=== PATIENT | female | born 1945 | race Caucasian/White ===

== ENCOUNTER 2025-09-18 20:01 | Emergency (ER) | payer MEDICARE, OTHER ==
[~2025-09-18] VITALS: Ht 172.7 cm; Wt 77.0 kg
[~2025-09-18 20:01] MED LIST: HYDR12.54 PO; LEVO75TA7 PO; LOSA50TA41 PO; METF-907 PO; SERT25TA74 PO; SIMV-43 PO
[2025-09-18 20:06] VITALS: TEMP 98.9; O2SAT 100
[2025-09-18 21:16] LABS: HEMATOCRIT. 36.1 % (36.0-48.0); HEMOGLOBIN. 11.8 g/dL (12.0-16.0); MEAN PLATELET VOLUME 9.3 fl (7.4-10.4); PLATELET 184 x1000/uL (130-400); RED BLOOD CELL COUNT 4.45 mill/uL (4.2-5.4); RED CELL DISTRIBUTION WIDTH 13.7 % (11.6-14.6)
[2025-09-18 21:24] LABS: UREA NITROGEN BLOOD 26 mg/dL (9-23)
[2025-09-18 21:25] LABS: ASPARTATE AMINOTRANSFERASE 43 IU/L (<34); TROPONIN I HIGH SENSITIVITY 6 ng/L (3.0-34)
[2025-09-18 21:26] LABS: BILIRUBIN DIRECT < 0.1 mg/dL (<=3.0); BILIRUBIN TOTAL 0.2 mg/dL (0.1-1.0); PROTEIN TOTAL 7.5 g/dL (6.0-8.3)
[2025-09-18] MEDS: SODIUM CHLORIDE 0.9% 1,000 ML IV ONE (21:36)
[2025-09-18 21:37] LABS: CREATININE 1.4 mg/dL (0.6-1.0)
[2025-09-18 23:47] LABS: TROPONIN I HIGH SENSITIVITY 8 ng/L (3.0-34)
[2025-09-19 00:02] LABS: ATYPICAL LYMPHOCYTES 2; LYMPHOCYTES % MANUAL 14.0 % (20.0-60.0); MONOCYTES % MANUAL 3.0 % (2.0-8.0); NEUTROPHILS % MANUAL 81.0 % (45.0-75.0); PLATELET ESTIMATE NORMAL
[2025-09-19] MEDS ORDERED: PROPOFOL 200MG/20ML VIAL IV ONE (00:30)
[2025-09-19 02:02] LABS: CLARITY URINE CLOUDY (CLEAR); COLOR URINE YELLOW (YELLOW); GLUCOSE URINE NEGATIVE (NEGATIVE); KETONES URINE NEGATIVE (NEGATIVE); LEUKOCYTE ESTERASE URINE 2+ (NEGATIVE); NITRITE URINE NEGATIVE (NEGATIVE); OCCULT BLOOD URINE NEGATIVE (NEGATIVE); PH URINE 6.0 (4.5-8.0); PROTEIN URINE TRACE (NEGATIVE); SPECIFIC GRAVITY URINE 1.022 (1.005-1.030); UROBILINOGEN URINE 0.2 E.U./dL (0.2-1.0)
[2025-09-19] MEDS ORDERED: CEFP100T9 MT (04:45)
[2025-09-19 05:01] LABS: SQUAMOUS EPITHELIAL CELL URINE 1+ /lpf (RARE/1+)
[2025-09-19 05:03] LABS: WBC URINE 15-25 /hpf (0-2)
[2025-09-19 05:07] LABS: RBC URINE NONE SEEN /hpf (0-2)
[2025-09-19 05:08] LABS: BACTERIA URINE 1+
[2025-09-19 05:18] VITALS: BP 162/76; PULSE 86; RESP 16; O2SAT 100
== END 2025-09-19 05:39 | disposition home or self-care (01) ==
LOC: ER 20:01
DX: N39.0 Urinary tract infection, site not specified (principal); R53.1 Weakness; E11.9 Type 2 diabetes mellitus without complications; R06.02 Shortness of breath; I10 Essential (primary) hypertension; Z79.84 Long term (current) use of oral hypoglycemic drugs; Z79.890 Hormone replacement therapy; Z79.899 Other long term (current) drug therapy; Z88.8 Allergy status to other drugs, medicaments and biological substances
CPT/HCPCS: 80076; 80048; 80320; 83880; 83690; 85025; 84484; 36415; 93005; 96360; 99285; 81003; 87086; J7030; G0480